=== PATIENT | male | born 1985 ===

== ENCOUNTER → 2023-04-25 | Day surgery (SDC) | payer OTHER ==
[2023-04-18 08:57] LABS: INR 1.04; PROTHROMBIN TIME 10.9 SECONDS (9.0-11.5)
[2023-04-27 08:10] LABS: hav igm Negative (Negative); hcv Non Reactive (Non Reactive); hep b c Negative (Negative)
== END | disposition home or self-care (01) ==
LOC: ADM 04-17 12:00 → CIR.AMB 08:04
PROVIDERS: ATTEND Colon & Rectal Surgery
DX: K64.2 Third degree hemorrhoids (principal); K64.8 Other hemorrhoids; K64.4 Residual hemorrhoidal skin tags; Z20.822 Contact with and (suspected) exposure to COVID-19